=== PATIENT | male | born 1990 | race American Indian/Alaskan Native ===

== ENCOUNTER 2020-12-10 07:28 | Emergency (ER) | payer MEDICAID ==
[2020-12-10] MEDS ORDERED: LORazepam 2 MG/ML VIAL IM ONE (08:20)
[2020-12-10] MEDS ORDERED: HALOPERIDOL LACTATE 5 MG/1 ML INJ IM ONE (08:20)
--- NOTE | 2020-12-10 08:23 | Emergency Department Report ---
ED Psych HPI - General Chief Complaint: Psych Stated Complaint: MH,SI Time Seen by Provider: 12/10/20 08:13 Source: patient Mode of arrival: Ambulatory - History of Present Illness Initial Comments: Patient is a 30-year-old male who presents with suicidal ideation and psychosis. Patient states that if he does not get his medicine he will hurt himself. Patient is agitated he states that his plan to commit suicide was to cut his wrist and slice his throat. Patient denies having chest pain nausea or vomiting denies having any shortness of breath. - Related Data Home Medications Medication Instructions Recorded Confirmed Last Taken No Known Home Medications [No 12/10/20 12/10/20 Unknown Reported Home Medications] Allergies Allergy/AdvReac Type Severity Reaction Status Date / Time No Known Allergies Allergy Unverified 12/10/20 07:37 ED Review of Systems ROS: Stated complaint: MH,SI Other details as noted in HPI Constitutional: denies: chills, fever Eyes: denies: eye pain, eye discharge, vision change ENT: denies: ear pain, throat pain Respiratory: denies: cough, shortness of breath, wheezing Cardiovascular: denies: chest pain, palpitations Endocrine: no symptoms reported Gastrointestinal: denies: abdominal pain, nausea, diarrhea Genitourinary: denies: urgency, dysuria Musculoskeletal: denies: back pain, joint swelling, arthralgia Skin: denies: rash, lesions Neurological: denies: headache, weakness, paresthesias Psychiatric: suicidal thoughts. denies: anxiety, depression Hematological/Lymphatic: denies: easy bleeding, easy bruising ED Past Medical Hx - Past Medical History Hx Psychiatric Treatment: Yes (bipolar schizophenic) - Social History Smoking Status: Unknown if ever smoked - Medications Home Medications: Home Medications Medication Instructions Recorded Confirmed Last Taken Type No Known Home Medications [No 12/10/20 12/10/20 Unknown History Reported Home Medications] ED Physical Exam - General Limitations: No Limitations General appearance: alert, in no apparent distress - Head Head exam: Present: atraumatic, normocephalic - Eye Eye exam: Present: normal appearance - ENT ENT exam: Present: mucous membranes moist - Neck Neck exam: Present: normal inspection - Respiratory Respiratory exam: Present: normal lung sounds bilaterally. Absent: respiratory distress - Cardiovascular Cardiovascular Exam: Present: regular rate, normal rhythm. Absent: systolic murmur, diastolic murmur, rubs, gallop - GI/Abdominal GI/Abdominal exam: Present: soft, normal bowel sounds - Rectal Rectal exam: Present: deferred - Extremities Exam Extremities exam: Present: normal inspection - Back Exam Back exam: Present: normal inspection - Neurological Exam Neurological exam: Present: alert, oriented X3 - Psychiatric Psychiatric exam: Present: suicidal ideation - Skin Skin exam: Present: warm, dry, intact, normal color. Absent: rash ED Course Vital Signs 12/10/20 07:58 Temperature 98 F Pulse Rate 66 Respiratory 20 Rate Blood Pressure 110/75 O2 Sat by Pulse 96 Oximetry ED Medical Decision Making - Lab Data Result diagrams: 12/10/20 08:53 12/10/20 08:53 Lab Results 12/10/20 12/10/20 12/10/20 Range/Units 08:05 08:05 08:53 WBC (4.5-11.0) K/mm3 RBC (3.65-5.03) M/mm3 Hgb (11.8-15.2) gm/dl Hct (35.5-45.6) % MCV (84-94) fl MCH (28-32) pg MCHC (32-34) % RDW (13.2-15.2) % Plt Count (140-440) K/mm3 Lymph % (Auto) (13.4-35.0) % [place] % (Auto) (0.0-7.3) % Eos % (Auto) (0.0-4.3) % Baso % (Auto) (0.0-1.8) % Lymph # (Auto) (1.2-5.4) K/mm3 [place] # (Auto) (0.0-0.8) K/mm3 Eos # (Auto) (0.0-0.4) K/mm3 Baso # (Auto) (0.0-0.1) K/mm3 Seg Neutrophils % (40.0-70.0) % Seg Neutrophils # (1.8-7.7) K/mm3 Sodium (137-145) mmol/L Potassium (3.6-5.0) mmol/L Chloride (98-107) mmol/L Carbon Dioxide (22-30) mmol/L Anion Gap mmol/L BUN (9-20) mg/dL Creatinine (0.8-1.3) mg/dL Estimated GFR ml/min BUN/Creatinine Ratio % Glucose (75-100) mg/dL Calcium (8.4-10.2) mg/dL Urine Color Yellow (Yellow) Urine Turbidity Clear (Clear) Urine pH 6.0 (5.0-7.0) Ur Specific Jerome 1.027 (1.003-1.030) Urine Protein <15 mg/dl (Negative) mg/dL Urine Glucose (UA) Neg (Negative) mg/dL Urine Ketones Neg (Negative) mg/dL Urine Blood Neg (Negative) Urine Nitrite Neg (Negative) Urine Bilirubin Neg (Negative) Urine Urobilinogen < 2.0 (<2.0) mg/dL Ur Leukocyte Esterase Neg (Negative) Urine WBC (Auto) < 1.0 (0.0-6.0) /HPF Urine RBC (Auto) 3.0 (0.0-6.0) /HPF Urine Mucus Few /HPF Salicylates < 0.3 L (2.8-20.0) mg/dL Urine Opiates Screen Negative Urine Methadone Screen Negative Acetaminophen (10.0-30.0) ug/mL Ur Barbiturates Screen Negative Ur Phencyclidine Scrn Negative Ur Amphetamines Screen Negative U Benzodiazepines Scrn Negative Urine Cocaine Screen Negative U Marijuana (THC) Screen Positive Drugs of Abuse Note Disclamer Plasma/Serum Alcohol (0-0.07) % Coronavirus (PCR) (Negative) 12/10/20 12/10/20 12/10/20 Range/Units 08:53 08:53 08:53 WBC (4.5-11.0) K/mm3 RBC (3.65-5.03) M/mm3 Hgb (11.8-15.2) gm/dl Hct (35.5-45.6) % MCV (84-94) fl MCH (28-32) pg MCHC (32-34) % RDW (13.2-15.2) % Plt Count (140-440) K/mm3 Lymph % (Auto) (13.4-35.0) % [place] % (Auto) (0.0-7.3) % Eos % (Auto) (0.0-4.3) % Baso % (Auto) (0.0-1.8) % Lymph # (Auto) (1.2-5.4) K/mm3 [place] # (Auto) (0.0-0.8) K/mm3 Eos # (Auto) (0.0-0.4) K/mm3 Baso # (Auto) (0.0-0.1) K/mm3 Seg Neutrophils % (40.0-70.0) % Seg Neutrophils # (1.8-7.7) K/mm3 Sodium 139 (137-145) mmol/L Potassium 4.2 (3.6-5.0) mmol/L Chloride 103.0 (98-107) mmol/L Carbon Dioxide 30 (22-30) mmol/L Anion Gap 10 mmol/L BUN 12 (9-20) mg/dL Creatinine 0.7 L (0.8-1.3) mg/dL Estimated GFR > 60 ml/min BUN/Creatinine Ratio 17 % Glucose 73 L (75-100) mg/dL Calcium 9.6 (8.4-10.2) mg/dL Urine Color (Yellow) Urine Turbidity (Clear) Urine pH (5.0-7.0) Ur Specific Jerome (1.003-1.030) Urine Protein (Negative) mg/dL Urine Glucose (UA) (Negative) mg/dL Urine Ketones (Negative) mg/dL Urine Blood (Negative) Urine Nitrite (Negative) Urine Bilirubin (Negative) Urine Urobilinogen (<2.0) mg/dL Ur Leukocyte Esterase (Negative) Urine WBC (Auto) (0.0-6.0) /HPF Urine RBC (Auto) (0.0-6.0) /HPF Urine Mucus /HPF Salicylates (2.8-20.0) mg/dL Urine Opiates Screen Urine Methadone Screen Acetaminophen 5.0 L (10.0-30.0) ug/mL Ur Barbiturates Screen Ur Phencyclidine Scrn Ur Amphetamines Screen U Benzodiazepines Scrn Urine Cocaine Screen U Marijuana (THC) Screen Drugs of Abuse Note Plasma/Serum Alcohol < 0.01 (0-0.07) % Coronavirus (PCR) (Negative) 12/10/20 12/10/20 Range/Units 08:53 09:58 WBC 3.8 L (4.5-11.0) K/mm3 RBC 4.05 (3.65-5.03) M/mm3 Hgb 13.4 (11.8-15.2) gm/dl Hct 39.0 (35.5-45.6) % MCV 96 H (84-94) fl MCH 33 H (28-32) pg MCHC 34 (32-34) % RDW 12.2 L (13.2-15.2) % Plt Count 173 (140-440) K/mm3 Lymph % (Auto) 26.3 (13.4-35.0) % [place] % (Auto) 9.4 H (0.0-7.3) % Eos % (Auto) 0.6 (0.0-4.3) % Baso % (Auto) 0.3 (0.0-1.8) % Lymph # (Auto) 1.0 L (1.2-5.4) K/mm3 [place] # (Auto) 0.4 (0.0-0.8) K/mm3 Eos # (Auto) 0.0 (0.0-0.4) K/mm3 Baso # (Auto) 0.0 (0.0-0.1) K/mm3 Seg Neutrophils % 63.4 (40.0-70.0) % Seg Neutrophils # 2.4 (1.8-7.7) K/mm3 Sodium (137-145) mmol/L Potassium (3.6-5.0) mmol/L Chloride (98-107) mmol/L Carbon Dioxide (22-30) mmol/L Anion Gap mmol/L BUN (9-20) mg/dL Creatinine (0.8-1.3) mg/dL Estimated GFR ml/min BUN/Creatinine Ratio % Glucose (75-100) mg/dL Calcium (8.4-10.2) mg/dL Urine Color (Yellow) Urine Turbidity (Clear) Urine pH (5.0-7.0) Ur Specific [place] (1.003-1.030) Urine Protein (Negative) mg/dL Urine Glucose (UA) (Negative) mg/dL Urine Ketones (Negative) mg/dL Urine Blood (Negative) Urine Nitrite (Negative) Urine Bilirubin (Negative) Urine Urobilinogen (<2.0) mg/dL Ur Leukocyte Esterase (Negative) Urine WBC (Auto) (0.0-6.0) /HPF Urine RBC (Auto) (0.0-6.0) /HPF Urine Mucus /HPF Salicylates (2.8-20.0) mg/dL Urine Opiates Screen Urine Methadone Screen Acetaminophen (10.0-30.0) ug/mL Ur Barbiturates Screen Ur Phencyclidine Scrn Ur Amphetamines Screen U Benzodiazepines Scrn Urine Cocaine Screen U Marijuana (THC) Screen Drugs of Abuse Note Plasma/Serum Alcohol (0-0.07) % Coronavirus (PCR) Negative (Negative) - Medical Decision Making Cdx: Suicidal ideation ddx: Schizoaffective disorder, Substance induced mood disorder I will sign a 1013 on the patient will get blood work and will have patient be seen by a psych assesor. Critical care attestation.: If time is entered above; I have spent that time in minutes in the direct care of this critically ill patient, excluding procedure time. ED Disposition Clinical Impression: Suicidal ideation Disposition: [id number]/TX-65 PSY HOSP/PSY UNIT Is pt being admited?: No Does the pt Need Aspirin: No Condition: Stable
[2020-12-10 08:35] LABS: Bilirubin,Urine NEG (Negative); Blood,Urine NEG (Negative); Color,Urine Yellow (Yellow); Mucus,Urine FEW /HPF; Protein,Urine <15 mg/dL mg/dL (Negative); Urobilinogen,Urine < 2.0 mg/dL (<2.0); WBC,Urine < 1.0 /HPF (0.0-6.0)
[2020-12-10 08:48] LABS: Amphetamine Screen,Urine Negative; Benzodiazepines Screen,Urine Negative; Cocaine Screen,Urine Negative; Methadone Screen,Urine Negative; Opiate Screen,Urine Negative
[2020-12-10 09:04] LABS: Cannabinoid Screen,Urine Positive
[2020-12-10 09:39] LABS: Basophils % (Auto) 0.3 % (0.0-1.8); Eosinophils % (Auto) 0.6 % (0.0-4.3); Hemoglobin 13.4 gm/dl (11.8-15.2); Lymphocytes % (Auto) 26.3 % (13.4-35.0); Mean Corpuscular HGB Conc 34 % (32-34); Mean Corpuscular Volume 96 fl (84-94); Monocytes # (Auto) 0.4 K/mm3 (0.0-0.8); Monocytes % (Auto) 9.4 % (0.0-7.3); Platelet Count 173 K/mm3 (140-440); Red Blood Count 4.05 M/mm3 (3.65-5.03); Red Cell Distribution Width 12.2 % (13.2-15.2)
[2020-12-10 10:14] LABS: BUN/Creatinine Ratio 17; Blood Urea Nitrogen 12 mg/dL (9-20); Calcium 9.6 mg/dL (8.4-10.2); Hemolysis Index 12
--- NOTE | 2020-12-10 13:34 | Consultation ---
History of Present Illness - Reason for Consult Consult date: 12/10/20 Reason for consult: Suidal Ideation - History of Present Psychiatric Illness Patient is a 30 year old male with a history of Schizophrenia and Bipolar who was admitted via the ED for suicidal ideation. During my interview with patient reports he was on Invega Sustenna which he last took months ago; patient reports having multiple psychiatric inpatient admissions. Patient became angry and verbally aggressive during my interview, stating that " nobody cares, I want to go to a psych hospital." Patient reports having visual hallucinations however, he refused to give details. PAST PSYCHIATRIC HISTORY Diagnoses: Bipolar, Schizophrenia Suicide attempts or Self-harm behavior: Denies Prior psychiatric hospitalizations: Multiple Substance Abuse history: unknown Previous psychiatric medications tried: unknown Outpatient treatment: unknown SOCIAL HISTORY Marital Status: Single Living Arrangements: unknown Employment Status: unemployed Access to guns/weapons: Denied Education: unknown History of Abuse: Denied Legal History: None reported REVIEW OF SYSTEMS Constitutional: Negative for weight loss ENT: Negative for stridor Respiratory: Negative for cough or hemoptysis All other systems reviewed and are negative MENTAL STATUS EXAMINATION General Appearance and Behavior: Age appropriate, dressed appropriately, calm and cooperative Cooperation: Hostile Psychomotor Behavior: psychomotor normal Mood: angry/ verbal aggressive Affect and affective range: Congruent with stated mood Thought Process: Loose of association Thought Content:Impulsive Speech: Pressured Intellectual Functioning: Average Suicidal Ideation: Denied Homicidal Ideation: Denied Hallucinations: Verbal hallucinations Delusions: None elicited Impulse Control: Impulsive Insight and Judgment: Poor insight and judgment, Memory: Normal Attention: destractible Orientation: Alert, oriented Assessment and Plan (1) Schizophrenia- F20.9 RECOMMENDATIONS 1013 Start- Zyprexa 5mg po BID Start Depakote 250mg BID Risks, benefits and alternatives of medications discussed with the patient, questions answered and consent obtained from patient. PSYCHOTHERAPY: Supportive psychotherapy provided MEDICAL: Per primary team DELIRIUM PRECAUTIONS: Please re-orient patient frequently, keep lights on during the day, and minimize benzodiazepines and opiates as these medications could worsen patient's confusion. 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 Please contact with any questions and/or concerns. Medications and Allergies Allergies Allergy/AdvReac Type Severity Reaction Status Date / Time No Known Allergies Allergy Unverified 12/10/20 07:37 Home Medications Medication Instructions Recorded Confirmed Last Taken Type No Known Home Medications [No 12/10/20 12/10/20 Unknown History Reported Home Medications] Mental Status Exam - Vital signs Last Vital Signs Temp 98 F 12/10/20 07:58 Pulse 66 12/10/20 07:58 Resp 20 12/10/20 07:58 BP 110/75 12/10/20 07:58 Pulse Ox 96 12/10/20 07:58 Results Result Diagrams: 12/10/20 08:53 12/10/20 08:53 Abnormal lab results 12/10/20 12/10/20 12/10/20 Range/Units 08:53 08:53 08:53 WBC (4.5-11.0) K/mm3 MCV (84-94) fl MCH (28-32) pg RDW (13.2-15.2) % [place] % (Auto) (0.0-7.3) % Lymph # (Auto) (1.2-5.4) K/mm3 Creatinine 0.7 L (0.8-1.3) mg/dL Glucose 73 L (75-100) mg/dL Salicylates < 0.3 L (2.8-20.0) mg/dL Acetaminophen 5.0 L (10.0-30.0) ug/mL 12/10/20 Range/Units 08:53 WBC 3.8 L (4.5-11.0) K/mm3 MCV 96 H (84-94) fl MCH 33 H (28-32) pg RDW 12.2 L (13.2-15.2) % [place] % (Auto) 9.4 H (0.0-7.3) % Lymph # (Auto) 1.0 L (1.2-5.4) K/mm3 Creatinine (0.8-1.3) mg/dL Glucose (75-100) mg/dL Salicylates (2.8-20.0) mg/dL Acetaminophen (10.0-30.0) ug/mL All other labs normal.
[2020-12-10] MEDS: DIVALPROEX DR 250 MG TAB PO SCH ×2 (14:06→21:57)
[2020-12-10] MEDS ORDERED: WATER FOR INJ Sterile (PF) 10 ML ONE (20:22)
[2020-12-10] MEDS ORDERED: ZIPRASIDONE MESYLATE 20 MG VIAL IM ONE ×2 (20:22→20:30)
[2020-12-11] MEDS ORDERED: ZIPRASIDONE MESYLATE 20 MG VIAL IM ONE ×2 (07:11→07:12)
[2020-12-11 08:19] VITALS: BP 123/78
--- NOTE | 2020-12-11 10:34 | Event Note ---
Date: 12/11/20 This patient presented yesterday with suicidal ideations and acute psychosis. For these reasons he was made a 1013 and placed on an ED hold by my colleague, Dr. Chirinos. The patient was also medically cleared at that time. I have reviewed the labs as well and there did not appear to be any significant abnormalities. The psychiatric ED nurse, Edilma, told me that this morning the patient was very aggressive and was banging on the windows to the nursing station. He was given some medication by the a.m. physician. At the time of my examination he is laying in bed/room 12, resting comfortably. Vital signs, listed below, have been reassuring throughout his ED course thus far. We are waiting for the psychiatric evaluation for 12/11, today. We will continue to monitor this patient during his ED course. Vital Signs - 24 hr 12/11/20 07:20 Temperature 97.8 F Pulse Rate 65 Respiratory 18 Rate Blood Pressure 123/78 [Left] O2 Sat by Pulse 97 Oximetry
[2020-12-11] MEDS: DIVALPROEX DR 250 MG TAB PO SCH (11:09)
--- NOTE | 2020-12-11 13:09 | Progress Note ---
Subjective - Reason for Consult Consult date: 12/11/20 Reason for consult: Psychosis - Chief Complaint Chief complaint: Per Ed Note: This patient presented yesterday with suicidal ideations and acute psychosis. For these reasons he was made a 1013 and placed on an ED hold by my colleague, Dr. Chirinos. The patient was also medically cleared at that time. I have reviewed the labs as well and there did not appear to be any significant abnormalities. The psychiatric ED nurse, Edilma, told me that this morning the patient was very aggressive and was banging on the windows to the nursing station. He was given some medication by the a.m. physician. At the time of my examination he is laying in bed/room 12, resting comfortably. Vital signs, listed below, have been reassuring throughout his ED course thus far. We are waiting for the psychiatric evaluation for 12/11, today. We will continue to monitor this patient during his ED course. Patient was seen this morning pacing the hallways and being verbally aggressive sometimes. Patient reports doing well. Patient states he wants to go home. He denies having suicidal/ homicidal Ideation and denies hallucinations. REVIEW OF SYSTEMS Constitutional: Negative for weight loss ENT: Negative for stridor Respiratory: Negative for cough or hemoptysis All other systems reviewed and are negative MENTAL STATUS EXAMINATION General Appearance and Behavior: Age appropriate, dressed appropriately, calm and cooperative Cooperation: Hostile Psychomotor Behavior: psychomotor normal Mood: angry/ verbal aggressive Affect and affective range: Congruent with stated mood Thought Process: Loose of association Thought Content:Impulsive Speech: Pressured Intellectual Functioning: Average Suicidal Ideation: Denied Homicidal Ideation: Denied Hallucinations: Verbal hallucinations Delusions: None elicited Impulse Control: Impulsive Insight and Judgment: Poor insight and judgment, Memory: Normal Attention: destractible Orientation: Alert, oriented Assessment and Plan (1) Schizophrenia- F20.9 RECOMMENDATIONS DC -1013 Start- Invega Sustenna 156mg IM Risks, benefits and alternatives of medications discussed with the patient, questions answered and consent obtained from patient. 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 Follow up with outpatient psychiatrist and PCP within 7 days. Patient is receptive to treatment plan and verbalized understanding. Mental Status Exam - Vital signs Last Vital Signs Temp 97.8 F 12/11/20 07:20 Pulse 65 12/11/20 07:20 Resp 18 12/11/20 07:20 BP 123/78 12/11/20 07:20 Pulse Ox 97 12/11/20 07:20
[2020-12-11] MEDS ORDERED: PALIPERIDONE PALMITATE 156 MG/ML INJ IM ONE (13:18)
== END 2020-12-11 14:45 ==
LOC: ED 07:28
DX: R45.851 Suicidal ideations (principal); F25.0 Schizoaffective disorder, bipolar type; Z20.822 Contact with and (suspected) exposure to COVID-19
CPT/HCPCS: 36415; 80048; 80307; 81001; 85025; 96372; 99284; J1630; J2060; J3486; U0003; 80320; G0480